=== PATIENT | male | born 1945 | race Caucasian/White ===

== ENCOUNTER 2017-09-01 20:16 | Emergency (ER) | payer MEDICARE, BC ==
[~2017-09-01] VITALS: Ht 182.9 cm; Wt 86.6 kg
--- NOTE | 2017-09-01 20:28 | NUR ---
71 YO FEMALE BB SELF. PT IS ALERT X 3, C/O LEFT CALF PAIN. PT IS ALERT X 3, DENIES PAIN AT THIS TIME. PT GOWNED, PLACED ON SALES AND PRODUCTION MANAGER. SKIN WARM AND DRY, RR EVEN AND UNLABORED. PULSES DISTAL TO PAIN SITE WNL. PATIENT DENIES CP/SOB OR ANY OTHER MEDICAL COMPLAINTS AT THIS TIME. AWAITING ORDERS FROM PROVIDER
--- NOTE | 2017-09-01 20:31 | NUR ---
MD LOPEZ AT BED SIDE FOR EVAL
--- NOTE | 2017-09-01 20:31 | NUR ---
CALLED [facility] ASSIST[facility] PRN FOR VENOUS DOPPLER STUDY. TONIA
--- NOTE | 2017-09-01 21:03 | NUR ---
ROSIE DICKERSON COMPLETED EXAM.
[2017-09-01 21:38] VITALS: BP 133/79
== END 2017-09-01 21:46 | disposition home or self-care (01) ==
LOC: ER 20:21
DX: M79.662 Pain in left lower leg (principal); E11.9 Type 2 diabetes mellitus without complications; I10 Essential (primary) hypertension; Z88.0 Allergy status to penicillin; Z88.8 Allergy status to other drugs, medicaments and biological substances
CPT/HCPCS: 93971-TC

== ENCOUNTER 2018-07-11 21:55 | Emergency (ER) | payer BC, MEDICARE, OTHER ==
[~2018-07-11] VITALS: Ht 182.9 cm; Wt 83.5 kg
--- NOTE | 2018-07-11 21:56 | NUR ---
ER MD STERLING AT BEDSIDE
--- NOTE | 2018-07-11 23:17 | NUR ---
BLADDER SCANNER USED. PT RETAINING APPROXIMATELY 580CC OF URINE
[2018-07-11] MEDS ORDERED: LIDOCAINE 2% JEL UROJET 10 ML MM ONE ×2 (23:21→23:30)
[2018-07-12] MEDS ORDERED: NITROFURANTOIN/NITROFURAN MAC 100 MG CAPSULE PO ONE (00:30)
[2018-07-12] MEDS ORDERED: NITROFURANTOIN/NITROFURAN MAC 100 MG CAPSULE ONE (00:33)
[2018-07-12 00:34] LABS: APPEARANCE,URINE CLEAR (CLEAR); BILIRUBIN,URINE NEGATIVE (NEGATIVE); BLOOD, URINE 1+ Ery/uL (NEGATIVE); COLOR,URINE YELLOW (YELLOW); KETONES,URINE NEGATIVE (NEGATIVE); LEUKOCYTE ESTERASE ,URINE NEGATIVE (NEGATIVE); NITRITE, URINE NEGATIVE (NEGATIVE); PH,URINE 6.5 (5.0-8.0); PROTEIN,URINE NEGATIVE (NEGATIVE); UGLUCOSE NEGATIVE (NEGATIVE); UROBILINOGEN,URINE 0.2 EU/dL (0.2)
[2018-07-12 00:41] LABS: BACTERIA,URINE Rare /HPF (None Seen); RBC,URINE 21-50 /HPF (0-2); SQUAMOUS EPITHELIAL CELL,UR Rare /HPF (None Seen); WBC,URINE 0-2 /HPF (0-3)
[2018-07-12 00:48] VITALS: BP 123/79
== END 2018-07-12 00:48 | disposition home or self-care (01) ==
LOC: ER 21:55
DX: R33.8 Other retention of urine (principal); E11.9 Type 2 diabetes mellitus without complications; I10 Essential (primary) hypertension; Z88.0 Allergy status to penicillin; Z88.8 Allergy status to other drugs, medicaments and biological substances; Z60.2 Problems related to living alone
CPT/HCPCS: 81000-TC; 87086-TC; A4606; J3490; Z7610

== ENCOUNTER 2019-04-07 21:33 | Emergency (ER) | payer BC ==
[~2019-04-07] VITALS: Ht 182.9 cm; Wt 81.6 kg
--- NOTE | 2019-04-07 21:44 | NUR ---
PT BIBS. C/O "HAVING WHITE URINE" -N/V AOX4. AMBULATORY. -ACUTE DISTRESS.
[2019-04-07 22:28] LABS: APPEARANCE,URINE Cloudy (CLEAR); BILIRUBIN,URINE Negative (NEGATIVE); BLOOD, URINE Trace-intact Ery/uL (NEGATIVE); COLOR,URINE Yellow (YELLOW); KETONES,URINE Negative (NEGATIVE); LEUKOCYTE ESTERASE ,URINE Moderate (NEGATIVE); NITRITE, URINE Negative (NEGATIVE); PROTEIN,URINE Negative (NEGATIVE); UGLUCOSE Negative (NEGATIVE); UROBILINOGEN,URINE 0.2 EU/dL (0.2)
[2019-04-07 22:32] LABS: BACTERIA,URINE Few /HPF (None Seen); RBC,URINE 0-2 /HPF (0-2); SQUAMOUS EPITHELIAL CELL,UR None Seen /HPF (None Seen); WBC,URINE TOO NUMEROUS TO COUN /HPF (0-3)
[2019-04-07] MEDS ORDERED: NITROFURANTOIN/NITROFURAN MAC 100 MG CAPSULE ONE (22:52)
[2019-04-07 22:56] VITALS: BP 130/77
[2019-04-07] MEDS ORDERED: NITROFURANTOIN/NITROFURAN MAC 100 MG CAPSULE PO ONE (23:00)
== END 2019-04-07 22:56 | disposition home or self-care (01) ==
LOC: ER 21:36
DX: N39.0 Urinary tract infection, site not specified (principal); E11.9 Type 2 diabetes mellitus without complications; I10 Essential (primary) hypertension; Z90.49 Acquired absence of other specified parts of digestive tract; Z88.0 Allergy status to penicillin; Z60.2 Problems related to living alone; Z88.8 Allergy status to other drugs, medicaments and biological substances
CPT/HCPCS: 81000-TC; 87086-TC; 87186-TC

== ENCOUNTER 2019-07-16 01:33 | Emergency (ER) | payer BC ==
[~2019-07-16] VITALS: Ht 182.9 cm; Wt 82.1 kg
[2019-07-16 02:14] VITALS: BP 169/83
== END 2019-07-16 03:28 | disposition home or self-care (01) ==
LOC: ER 01:34
DX: R20.2 Paresthesia of skin (principal); E11.9 Type 2 diabetes mellitus without complications; I10 Essential (primary) hypertension; N40.0 Benign prostatic hyperplasia without lower urinary tract symptoms; Z90.49 Acquired absence of other specified parts of digestive tract; Z88.1 Allergy status to other antibiotic agents; Z88.2 Allergy status to sulfonamides; Z60.2 Problems related to living alone; Z88.9 Allergy status to unspecified drugs, medicaments and biological substances

== ENCOUNTER 2020-01-02 03:35 | Inpatient (IN) | payer BC ==
[~2020-01-02] VITALS: Ht 182.9 cm; Wt 82.1 kg
--- NOTE | 2020-01-02 03:45 | NUR ---
PT CAME TO ER BED 9 C/O CHEST PAIN SINCE 129. PT STATES HE HAS LEFT SIDED CHEST PAIN THAT DOES NO RADIATE TO ANYWHERE ELSE. AAOX4. NO SOB. BREATHING EVENLY AND UNLABORED ON ROOM AIR. CONNECTED TO MONITOR.
[2020-01-02 03:51] LABS: BASOPHILS % (AUTO) 0.6 % (0.0-2.0); EOSINOPHILS % (AUTO) 8.8 % (0.0-6.0); HEMATOCRIT 44 % (39-51); HEMOGLOBIN 15.1 g/dL (13.5-17.5); LYMPHOCYTES # (AUTO) 1.9 /CMM (0.8-4.8); MEAN CORPUSCULAR HGB CONC 34 g/dl (31.0-36.0); MEAN CORPUSCULAR VOLUME 87 fL (80-96); MONOCYTES # (AUTO) 0.8 /CMM (0.1-1.30); MONOCYTES % (AUTO) 10.2 % (2.0-12.0); NEUTROPHILS # (AUTO) 4.3 /CMM (1.8-8.9); NEUTROPHILS % (AUTO) 55.4 % (43.0-81.0); PLATELET COUNT (AUTO) 241 /CMM (150-450); RED BLOOD CELL COUNT(AUTO) 5.06 MIL/uL (4.5-6.0); WHITE BLOOD COUNT (AUTO) 7.8 K/uL (4.3-11.0)
--- NOTE | 2020-01-02 03:51 | NUR ---
BLOOD DRAWN AND SENT TO LAB
[2020-01-02 04:02] LABS: CALCIUM, SERUM 9.1 mg/dL (8.5-10.1); CARBON DIOXIDE 28 mmol/L (21-32); CHLORIDE 102 mmol/L (98-107); CREATININE 1.8 mg/dL (0.6-1.3); GLUCOSE 245 mg/dL (74-106); POTASSIUM 3.8 mmol/L (3.5-5.1); SODIUM SERUM 139 mmol/L (136-145); UREA NITROGEN, BLOOD 32 mg/dL (7-18)
[2020-01-02 04:15] LABS: B-TYPE NATRIURETIC PEPTIDE 105 PG/ML (0-125)
--- NOTE | 2020-01-02 05:58 | NUR ---
Thomas barrientos in [facility] - 01/02/20 at 0558 by KAMILLA [id number]
--- NOTE | 2020-01-02 06:27 | NUR ---
BED ASSIGNMENT 323-1
[2020-01-02] MEDS ORDERED: ONDANSETRON HCL/PF 4 MG/2 ML VIAL IVP PRN (06:30)
[2020-01-02] MEDS ORDERED: MAGNESIUM HYDROXIDE 30 ML UDC PO PRN (06:30)
[2020-01-02] MEDS ORDERED: NITROGLYCERIN 0.4 MG/TAB BOTTLE SL ONE (06:30)
[2020-01-02] MEDS ORDERED: HYDROCODONE/APAP 5/325MG 1 EACH TABLET PO PRN (06:30)
[2020-01-02] MEDS ORDERED: MORPHINE SULFATE INJ 2 MG/ML DISP.SYRIN IV PRN (06:30)
[2020-01-02] MEDS ORDERED: MAG HYDROX/AL HYDROX/SIMETH 30 ML UDC PO PRN (06:30)
[2020-01-02] MEDS ORDERED: CLONIDINE HCL 0.1 MG TABLET PO PRN (06:30)
[2020-01-02] MEDS ORDERED: ACETAMINOPHEN 325 MG TABLET PO PRN (06:30)
[2020-01-02] MEDS ORDERED: ASPIRIN 325 MG TABLET PO ONE (06:30)
--- NOTE | 2020-01-02 06:43 | NUR ---
REPORT GIVEN TO REKHA XIE FOR ALFONSO
[2020-01-02 07:49] LABS: ALBUMIN 4.2 g/dL (3.4-5.0); BILIRUBIN,DIRECT 0.1 mg/dL (0.0-0.2); BILIRUBIN,TOTAL 0.7 mg/dL (0.2-1.0); MAGNESIUM 2.4 mg/dL (1.8-2.4); PHOSPHORUS 3.6 mg/dL (2.5-4.9); TOTAL PROTEIN, SERUM 7.8 g/dL (6.4-8.2)
[2020-01-02] MEDS ORDERED: LINA5TAB PO (07:58)
[2020-01-02] MEDS ORDERED: FEBU80TA PO (07:58)
[2020-01-02] MEDS ORDERED: GLIM4TAB37 PO (07:58)
[2020-01-02] MEDS ORDERED: AMLO5TAB9 PO (07:58)
[2020-01-02] MEDS ORDERED: DIAZ10TA4 PO (07:58)
[2020-01-02] MEDS ORDERED: ACET-1951 PO (07:59)
[2020-01-02 08:00] VITALS: BP 126/61
[2020-01-02] MEDS ORDERED: LACTULOSE 10 G/15 ML UDC (PYXIS) PO PRN (08:00)
--- NOTE | 2020-01-02 08:00 | NUR ---
DOCUMENT CLERK NOTE PATIENT AT UNIT UPON NURSE ARRIVAL. RECEIVED REPORT FROM REKHA DONALDSON ABOUT PATIENT HX. PATIENT IN BED. AWAKE, ALERT AND ORIENTED X4. NO COMPLAINTS OF CHEST PAIN REPORTED TO NURSE. IV SITE CLEAN, PATENT AND DRY. ON TELE MONITORING WITH SINUS RHYTHM NOTED. INDEPENDENT WITH AMBULATION. ASSESSMENTS MADE, BELONGING FORMS WERE SIGNED BEFOREHAND. PATIENT NPO FOR NM STRESS TEST ORDERED. CONSENT FORM SIGNED. PATIENT VERBALIZED NO WOUNDS OR PRESSURE SORES PRESENT. 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 REFUSED THOROUGH SKIN ASSESSMENT. BED LOCKED, LOW AND AT SEMI-CHOWDHURY'S POSITION. CALL LIGHT IN REACH. WILL CONTINUE TO MONITOR.
[2020-01-02] MEDS ORDERED: REGADENOSON 0.4 MG/5 ML DISP.SYRIN IVP ONE (09:00)
[2020-01-02] MEDS ORDERED: ATORVASTATIN 10 MG TABLET PO SCH ×2 (09:00→22:00)
[2020-01-02] MEDS: GLIMEPIRIDE 4 MG TABLET PO SCH (10:01)
[2020-01-02] MEDS: AMLODIPINE BESYLATE 5 MG TABLET PO SCH (10:01)
[2020-01-02] MEDS: ASPIRIN 81 MG TAB.CHEW PO SCH (10:01)
[2020-01-02] MEDS: LINAGLIPTIN 5 MG TABLET PO SCH (10:02)
[2020-01-02] MEDS: PANTOPRAZOLE 40 MG TABLET.DR PO SCH (10:02)
[2020-01-02] MEDS: CARVEDILOL 3.125 MG TABLET PO SCH ×2 (10:02→21:01)
[2020-01-02 11:27] LABS: THYROID STIMULATING HORMONE 7.431 uIU/mL (0.358-3.74)
--- NOTE | 2020-01-02 11:30 | NUR ---
RN NOTE: INFORMED DR. LEPE THAT PATIENT REFUSED ATORVASTATIN DUE TO PRIMARY MD D/C FOR HIS RENAL FAILURE. ACKNOWLEDGED AND OK TO DC.
[2020-01-02 12:00] VITALS: BP 129/65
[2020-01-02] MEDS: IV NS 0.9% 1,000 ML IV PRN (12:54)
--- NOTE | 2020-01-02 15:30 | NUR ---
RN NOTE: PATIENT HAS ULORIC 80MG ON HAND AND WILL DEPOSIT TO PHARMACY. 27 TABLETS WERE GIVEN TO PHARMACY 1 DOSE WAS TAKEN BEFORE IT WAS CHECKED IN. PATIENT'S TYLENOL PM WHICH HE STATES HE TAKES FOR PAIN ASSOCIATED WITH GOUT AND FOR THE S/E OF DROWSINESS TO HELP HIM SLEEP IS NOT AVAILABLE IN PHARMACY BUT INSTEAD WAS EXPLAINED THAT ACETAMINOPHEN AND DIPHENHYDRAMINE HCL ARE THE 2 MEDICATIONS THAT COMPRISE OF IT IS AVAILABLE AND THESE 2 CAN BE TAKEN TOGETHER AT NIGHT PER PHARMACIST. PATIENT ACKNOWLEDGED AND AGREED. AGREED.
[2020-01-02 16:00] VITALS: BP_SYST 126; BP_SYST 128; BP_DIAS 61; BP_DIAS 70
--- NOTE | 2020-01-02 16:33 | NUR ---
RN NOTE: PATIENT VERBALIZED UNDERSTANDING OF TAKING ATORVASTATIN 10MG QD AFTER TALK WITH HIS REGULAR PRIMARY MD. OBTAINED ORDER FROM DR. LEPE. BLOOD SUGAR CHECK AC HS ORDERED. PATIENT WITH NO INSULIN COVERAGE PATIENT STATES THAT HE DOES NOT TAKE ANY INSULIN AT HOME.
--- NOTE | 2020-01-02 17:00 | NUR ---
RN NOTE: VERIFIED WITH DR. LEPE ABOUT PATIENT'S BLOOD SUGAR COVERAGE. WITH ACHS CHECKS BUT WITH NO INSULIN COVERAGE AND NO SPECIFIED LEVEL OF POC BLOOD SUGAR LEVEL TO REPORT ON. DR. LEPE ALSO ACKNOWLEDGED INFORMATION THAT PATIENT WAS NOT GIVEN ASA 325MG 1 TAB IN ER BASED ON EMR BUT ASA 81 MG WAS GIVEN EARLIER ON SHIFT.
--- NOTE | 2020-01-02 17:01 | NUR ---
RN NOTE: NM STRESS TEST RESULT RELAYED TO DR. LEPE. ACKNOWLEDGED RESULTS
[2020-01-02] MEDS: BLOOD SUGAR DIAGNOSTIC 1 EACH STRIP IN SCH ×2 (17:28→22:05)
--- NOTE | 2020-01-02 19:30 | NUR ---
RN CLOSING NOTE: NO ACUTE CHANGES NOTED ON SHIFT. PATIENT IN BED. ALERT, AWAKE AND ORIENTED X4. NO COMPLAINTS OF CHEST PAIN REPORTED TO NURSE. IV SITE CLEAN, PATENT AND DRY WITH IV INFUSION RUNNING AND BEING TOLERATED WELL. ON TELE MONITORING WITH SINUS RHYTHM NOTED. PATIENT WITH ORDERS FOR NPO PM AND CONSENT FOR PROCEDURE FOR CARDIAC CATHETERIZATION FOR TOMORROW. NIGHT NURSE MADE AWARE. ENDORSED TO [facility] FOR ALFONSO. BED LOCKED, LOW AND AT SEMI-CHOWDHURY'S POSITION. CALL LIGHT IN REACH.
--- NOTE | 2020-01-02 19:48 | NUR ---
MS RN OPENING NOTES PATIENT RECEIVED RESTING IN BED WATCHING TV A/O X4. STABLE ON RA WITH BREATHING EVEN AND UNLABORED, NO SOB NOTED. NO SIGNS OF ACUTE DISTRESS. NO CURRENT COMPLAINTS OF PAIN OR DISCOMFORT. IV LOCATED ON R FA #[id number] RUNNING NS @ 75ML/ HR. SAFETY PRECAUTIONS IN PLACE WITH BED IN LOWEST POSITION, CALL LIGHT WITHIN REACH, BREAKS ON, AND SIDE RAILS UP X2. WILL CONTINUE TO MONITOR.
[2020-01-02 20:00] VITALS: BP 138/82
[2020-01-02] MEDS ORDERED: DIAZEPAM 10 MG TABLET PO SCH (22:00)
[2020-01-02] MEDS ORDERED: diphenhydrAMINE HCL 25 MG CAPSULE PO SCH (22:00)
[2020-01-03] VITALS (22 sets, daily range): BP systolic 110–161; BP diastolic 44–98
[2020-01-03] MEDS: IV NS 0.9% 1,000 ML IV PRN (05:42)
[2020-01-03] MEDS ORDERED: IODIXANOL 150 ML IV ONE (06:15)
[2020-01-03 06:20] LABS: BASOPHILS # (AUTO) 0.1 /CMM (0.0-0.2); BASOPHILS % (AUTO) 1.2 % (0.0-2.0); EOSINOPHILS % (AUTO) 7.7 % (0.0-6.0); HEMATOCRIT 43 % (39-51); HEMOGLOBIN 14.2 g/dL (13.5-17.5); LYMPHOCYTES # (AUTO) 1.7 /CMM (0.8-4.8); LYMPHOCYTES % (AUTO) 19.8 % (20.0-44.0); MEAN CORPUSCULAR HGB CONC 33 g/dl (31.0-36.0); MEAN CORPUSCULAR VOLUME 86 fL (80-96); MONOCYTES % (AUTO) 11.3 % (2.0-12.0); NEUTROPHILS # (AUTO) 5.1 /CMM (1.8-8.9); PLATELET COUNT (AUTO) 208 /CMM (150-450); RED BLOOD CELL COUNT(AUTO) 4.98 MIL/uL (4.5-6.0); WHITE BLOOD COUNT (AUTO) 8.6 K/uL (4.3-11.0)
[2020-01-03] MEDS ORDERED: VERAPAMIL HCL IV 5 MG/2 ML VIAL ONE (06:20)
[2020-01-03] MEDS ORDERED: IV NS 0.9% 1,000 ML ONE (06:20)
[2020-01-03] MEDS ORDERED: NITROGLYCERIN ICAR 1,000 MCG/10 ML VIAL ICAR ONE (06:21)
[2020-01-03] MEDS ORDERED: LIDOCAINE HCL/PF 1% 30 ML SDV ONE (06:21)
[2020-01-03] MEDS ORDERED: HEPARIN SODIUM, PORCINE 1,000 UNIT/ML VIAL ONE (06:21)
--- NOTE | 2020-01-03 06:21 | NUR ---
MS RN NOTES PATIENT LEFT WITH CARDIAC CATH STAFF FOR SURGERY. PATIENT A/O X4, STABLE ON RA AND MEDICALLY STABLE. PATIENT BROUGHT DOWN VIA GURNEY, WITH PATIENT CHART. ALL BELONGINGS PUT TOGETHER IN PATIENT ROOM. ALL CONSENT SIGNED.
[2020-01-03] MEDS ORDERED: IV SET PRIMARY 1 EA INFUS.SET MC ONE (06:23)
[2020-01-03 06:54] LABS: ALANINE AMINOTRANSFERASE 33 U/L (12-78); ALBUMIN 3.7 g/dL (3.4-5.0); ALKALINE PHOSPHATASE 83 U/L (46-116); ASPARTATE AMINOTRANSFERASE 18 U/L (15-37); BILIRUBIN,TOTAL 0.7 mg/dL (0.2-1.0); CALCIUM, SERUM 8.8 mg/dL (8.5-10.1); CARBON DIOXIDE 24 mmol/L (21-32); CHLORIDE 103 mmol/L (98-107); CREATININE 1.6 mg/dL (0.6-1.3); GLUCOSE 210 mg/dL (74-106); MAGNESIUM 1.8 mg/dL (1.8-2.4); PHOSPHORUS 3.3 mg/dL (2.5-4.9); POTASSIUM 4.4 mmol/L (3.5-5.1); SODIUM SERUM 137 mmol/L (136-145); TOTAL PROTEIN, SERUM 7.2 g/dL (6.4-8.2); UREA NITROGEN, BLOOD 21 mg/dL (7-18)
[2020-01-03] MEDS ORDERED: FENTANYL PF 100MCG/2ML AMPUL ONE (06:59)
[2020-01-03] MEDS ORDERED: MIDAZOLAM HCL 2 MG/2ML VIAL ONE (07:00)
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
[2020-01-03] MEDS: BLOOD SUGAR DIAGNOSTIC 1 EACH STRIP IN SCH ×3 (08:24→17:43)
[2020-01-03] MEDS: PANTOPRAZOLE 40 MG TABLET.DR PO SCH (08:28)
[2020-01-03] MEDS: LINAGLIPTIN 5 MG TABLET PO SCH (08:28)
[2020-01-03] MEDS: GLIMEPIRIDE 4 MG TABLET PO SCH (08:28)
[2020-01-03] MEDS: ASPIRIN 81 MG TAB.CHEW PO SCH (08:29)
[2020-01-03] MEDS: CARVEDILOL 3.125 MG TABLET PO SCH (08:29)
[2020-01-03] MEDS ORDERED: IV NS 0.9% 1,000 ML IV PRN (08:30)
[2020-01-03] MEDS: AMLODIPINE BESYLATE 5 MG TABLET PO SCH (08:35)
--- NOTE | 2020-01-03 10:30 | NUR ---
ICU/RN: Dr Rain at bedside; updated on pt status. Pt now agreeable for transfer to higher level of care.
--- NOTE | 2020-01-03 13:00 | NUR ---
ICU/RN: TR Band removed, no active bleeding, hematoma noted. Verbalized understanding of plan of care. Family at bedside.
== END 2020-01-03 18:30 | disposition short-term general hospital (02) | DRG 286 ==
LOC: ER 03:36 → TELE 06:28 → ICU 01-03 07:28
PROVIDERS: ADMIT Internal Medicine; ATTEND Internal Medicine
DX: I25.110 Atherosclerotic heart disease of native coronary artery with unstable angina pectoris (principal); N17.0 Acute kidney failure with tubular necrosis; L92.0 Granuloma annulare; I12.9 Hypertensive chronic kidney disease with stage 1 through stage 4 chronic kidney disease, or unspecified chronic kidney disease; E11.22 Type 2 diabetes mellitus with diabetic chronic kidney disease; N18.9 Chronic kidney disease, unspecified; K59.00 Constipation, unspecified; N40.0 Benign prostatic hyperplasia without lower urinary tract symptoms; M10.9 Gout, unspecified; Z79.84 Long term (current) use of oral hypoglycemic drugs; E86.9 Volume depletion, unspecified; J00 Acute nasopharyngitis [common cold]; E11.65 Type 2 diabetes mellitus with hyperglycemia
CPT/HCPCS: 36415; 71045-TC; 80048-TC; 80053-TC; 80061-TC; 80076-TC; 82962-TC; 83735-TC; 83880; 84100-TC; 84443-TC; 84484-TC; 84550-TC; 85025-TC; 85730-TC; 87081-TC; 93307-TC; 93452; 94799-TC; A9502; C1887; G0378; J1644; J2250; J2785; J3010; J3490; J7030; Q0163; Q9967

== ENCOUNTER 2023-02-04 07:59 | Emergency (ER) | payer BC ==
[~2023-02-04] VITALS: Ht 182.9 cm; Wt 83.0 kg
[~2023-02-04 07:59] MED LIST: ACET-1951 PO; AMLO-212 PO; DIAZ10TA4 PO; FEBU80TA PO; GLIM4TAB37 PO; LINA5TAB PO
[2023-02-04] MEDS ORDERED: CLIN300C12 PO (08:23)
--- NOTE | 2023-02-04 08:26 | NUR ---
"insect bite" in right forearm noted 2 days ago, painful to extend the arm
--- NOTE | 2023-02-04 08:26 | NUR ---
Dr. Nguyen at bedside
[2023-02-04 08:38] VITALS: BP 155/83
--- NOTE | 2023-02-04 08:38 | NUR ---
Patient discharged to home in stable condition. Written and verbal after care instructions given. Patient verbalizes understanding of instruction.
== END 2023-02-04 08:39 | disposition home or self-care (01) ==
LOC: ER 08:08
DX: L03.113 Cellulitis of right upper limb (principal); E11.9 Type 2 diabetes mellitus without complications; I10 Essential (primary) hypertension; Z90.49 Acquired absence of other specified parts of digestive tract; Z79.899 Other long term (current) drug therapy; Z60.2 Problems related to living alone; Z88.0 Allergy status to penicillin; Z88.2 Allergy status to sulfonamides; Z88.1 Allergy status to other antibiotic agents

== ENCOUNTER 2024-07-29 08:04 | Emergency (ER) | payer BC ==
[~2024-07-29] VITALS: Ht 182.9 cm; Wt 81.2 kg
[~2024-07-29 08:04] MED LIST changes: +CLIN300C12 PO
[2024-07-29] MEDS ORDERED: PANT40TA49 PO (08:43)
[2024-07-29] MEDS ORDERED: FAMO20TA80 PO (08:44)
[2024-07-29] MEDS ORDERED: SUCR1TAB31 PO (08:44)
[2024-07-29] MEDS ORDERED: LIDOCAINE VISCOUS 2% UD 15 ML UDC ONE (08:52)
[2024-07-29] MEDS ORDERED: FAMOTIDINE (20 MG) 20 MG TABLET ONE (08:52)
[2024-07-29] MEDS ORDERED: MAG HYDROX/AL HYDROX/SIMETH 30 ML UDC ONE (08:52)
[2024-07-29] MEDS: FAMOTIDINE/PF INJ 20 MG/2 ML VIAL IV ONE (08:58)
[2024-07-29] MEDS: LIDOCAINE VISCOUS 2% UD 15 ML UDC MM ONE (08:59)
[2024-07-29] MEDS: MAG HYDROX/AL HYDROX/SIMETH 30 ML UDC PO ONE (08:59)
[2024-07-29 09:41] VITALS: BP 143/84; TEMP 98; O2SAT 99
== END 2024-07-29 09:41 | disposition home or self-care (01) ==
LOC: ER 08:08
DX: J02.9 Acute pharyngitis, unspecified (principal); K21.9 Gastro-esophageal reflux disease without esophagitis; I10 Essential (primary) hypertension; E11.9 Type 2 diabetes mellitus without complications; Z98.890 Other specified postprocedural states; Z79.899 Other long term (current) drug therapy; Z88.0 Allergy status to penicillin; Z88.2 Allergy status to sulfonamides